=== PATIENT | male | born 1940 ===

== ENCOUNTER 2023-01-01 13:43 | Inpatient (IN) | payer MEDICARE ==
[2023-01-01] MEDS ORDERED: Mag-Al 1200 mg/1200 mg/30 ML UDCUP PO PRN (15:30)
[2023-01-01] MEDS ORDERED: Bisacodyl 5 MG TAB PO PRN (15:30)
[2023-01-01 16:15] LABS: #Basophils 0.1 thou/uL (0.0-0.2); #Eosinphils 0.1 thou/uL (0.0-0.7); #Lymphocytes 3.1 thou/uL (1.20-3.40); #Neutrophils 8.6 thou/uL (1.40-6.50); %Basophils 0.7 % (0.0-1.0); %Eosinophils 0.5 % (0.0-10.0); %Lymphocytes 24.4 % (21.0-51.0); %Monocytes 7.4 % (0.0-10.0); Hemoglobin 14.6 g/dL (14.0-18.0); Mean Corpuscular HGB CONC 31.8 g/dL (32.0-36.0); Mean Corpuscular Hemoglobin 31.8 pg (27.0-31.0); Mean Corpuscular Volume 99.9 fl (78.0-98.0); Mean Platelet Volume 8.3 fL (7.4-10.4); Platelet Count 197 10x3/uL (130-400); RBC Distribution Width 13.4 % (11.5-14.5); Red Blood Cell (RBC) Count 4.61 mill/uL (4.70-6.10); White Blood Cell (WBC) Count 12.8 10x3/uL (4.8-10.8)
[2023-01-01 16:37] LABS: ALT (SGPT) 25 U/L (8-55); AST (SGOT) 25 U/L (5-34); Albumin 3.9 g/dL (3.4-4.8); Alkaline Phosphatase 73 U/L (40-110); Anion Gap 13 mmol/L (10-20); BUN (Urea Nitrogen) 20 mg/dL (8.4-25.7); Bilirubin, Total 0.7 mg/dL (0.2-1.2); Calc. Creatinine Clearance 68 mL/min (70-130); Calcium 9.7 mg/dL (7.8-10.44); Carbon Dioxide 23 mmol/L (23-31); Chloride 105 mmol/L (98-107); Estimated GFR 69; Glucose 101 mg/dL (83-110); Potassium 4.4 mmol/L (3.5-5.1); Protein, Total 6.9 g/dL (5.8-8.1); Sodium 137 mmol/L (136-145)
[2023-01-01] MEDS: Apixaban 5 MG TAB PO SCH (20:38)
[2023-01-02] MEDS: Furosemide 40 MG/4 ML VIAL SLOW IVP SCH (08:35)
[2023-01-02] MEDS: Apixaban 5 MG TAB PO SCH ×2 (08:35→20:10)
[2023-01-02] MEDS ORDERED: Flecainide 50 MG TAB PO SCH (09:00)
[2023-01-02] MEDS ORDERED: Rivaroxaban 10 MG TAB PO SCH (09:00)
[2023-01-02] MEDS ORDERED: Amiodarone 150 MG in Dextrose 5% in Water 100 ML IVPB SCH (09:15)
[2023-01-02 10:45] LABS: Magnesium 1.9 mg/dL (1.6-2.6)
[2023-01-02 10:46] LABS: ALT (SGPT) 25 U/L (8-55); AST (SGOT) 22 U/L (5-34); Alkaline Phosphatase 75 U/L (40-110); Bilirubin, Direct 0.5 mg/dL (0.1-0.3)
[2023-01-02] MEDS: Amiodarone 450 MG in Dextrose 5% in Water 250 ML IVPB SCH ×2 (10:55→20:06)
[2023-01-02] MEDS ORDERED: Furosemide 40 MG/4 ML VIAL SLOW IVP SCH (14:00)
[2023-01-02] MEDS: Furosemide 20 MG/2 ML VIAL SLOW IVP SCH (14:45)
[2023-01-02] MEDS: Carvedilol 3.125 MG TAB PO SCH (17:02)
[2023-01-02] MEDS: Benzonatate 100 MG CAP PO PRN (18:07)
[2023-01-02] MEDS: Amiodarone 200 MG TAB PO SCH (20:10)
[2023-01-03] MEDS: Benzonatate 100 MG CAP PO PRN ×2 (01:26→17:15)
[2023-01-03] MEDS: Furosemide 20 MG/2 ML VIAL SLOW IVP SCH ×2 (06:17→18:02)
[2023-01-03] MEDS: Amiodarone 200 MG TAB PO SCH ×2 (10:33→20:17)
[2023-01-03] MEDS: Carvedilol 3.125 MG TAB PO SCH ×2 (10:33→17:07)
[2023-01-03] MEDS: Apixaban 5 MG TAB PO SCH ×2 (10:34→20:17)
[2023-01-03] MEDS: Amiodarone 450 MG in Dextrose 5% in Water 250 ML IVPB SCH (13:13)
[2023-01-03] MEDS ORDERED: Furosemide 40 MG/4 ML VIAL SLOW IVP SCH (16:30)
[2023-01-03] MEDS: Furosemide 40 MG/4 ML VIAL SLOW IVP SCH (18:02)
[2023-01-03] MEDS: Digoxin 0.5 MG/2 ML AMP SLOW IVP SCH ×2 (18:56→23:40)
[2023-01-04] MEDS: Digoxin 0.5 MG/2 ML AMP SLOW IVP SCH ×2 (05:39→13:11)
[2023-01-04] MEDS: Amiodarone 450 MG in Dextrose 5% in Water 250 ML IVPB SCH ×2 (05:45→23:10)
[2023-01-04] MEDS: Furosemide 40 MG/4 ML VIAL SLOW IVP SCH ×2 (05:45→14:55)
[2023-01-04] MEDS: Carvedilol 3.125 MG TAB PO SCH ×2 (09:19→18:30)
[2023-01-04] MEDS: Apixaban 5 MG TAB PO SCH ×2 (09:19→19:56)
[2023-01-04] MEDS: Amiodarone 200 MG TAB PO SCH ×2 (09:19→19:56)
[2023-01-04] MEDS: Benzonatate 100 MG CAP PO PRN (21:11)
[2023-01-05] MEDS: Furosemide 40 MG/4 ML VIAL SLOW IVP SCH ×2 (03:23→14:00)
[2023-01-05] MEDS: Benzonatate 100 MG CAP PO PRN ×3 (03:32→20:48)
[2023-01-05 05:22] LABS: Anion Gap 12 mmol/L (10-20); BUN (Urea Nitrogen) 13 mg/dL (8.4-25.7); Calc. Creatinine Clearance 75 mL/min (70-130); Calcium 9.3 mg/dL (7.8-10.44); Carbon Dioxide 31 mmol/L (23-31); Chloride 99 mmol/L (98-107); Estimated GFR 85; Glucose 108 mg/dL (83-110); Potassium 3.4 mmol/L (3.5-5.1); Sodium 139 mmol/L (136-145)
[2023-01-05] MEDS: Carvedilol 3.125 MG TAB PO SCH (08:11)
[2023-01-05 09:39] VITALS: BMI 28.6
[2023-01-05] MEDS ORDERED: KETAMINE 100 MG/ML (5ML VIAL) ONE (10:02)
[2023-01-05] MEDS ORDERED: PHENYLEPHRINE-NS 100 MCG/ML 10 ML SYRINGE ONE (10:35)
[2023-01-05] MEDS ORDERED: Norepinephrine 4 MG/4 ML VIAL ONE (10:36)
[2023-01-05] MEDS ORDERED: PROPOFOL 200 MG/20 ML VIAL ONE (10:54)
[2023-01-05] MEDS: Amiodarone 200 MG TAB PO SCH ×2 (12:09→20:49)
[2023-01-05] MEDS: Apixaban 5 MG TAB PO SCH ×2 (12:09→20:49)
[2023-01-05] MEDS ORDERED: cloNIDine 0.1 MG TAB PO PRN (13:15)
[2023-01-05] MEDS ORDERED: Spironolactone 25 MG TAB PO SCH (13:30)
[2023-01-05] MEDS ORDERED: Carvedilol 6.25 MG TAB PO SCH (13:45)
[2023-01-05] MEDS: Acetaminophen 325 MG TAB PO PRN (14:00)
[2023-01-05] MEDS: Carvedilol 6.25 MG TAB PO SCH (16:09)
[2023-01-05] MEDS: Sacubitril 24MG/Valsartan 26 MG TAB PO SCH (20:49)
[2023-01-06] MEDS: Furosemide 40 MG/4 ML VIAL SLOW IVP SCH ×2 (05:57→14:30)
[2023-01-06] MEDS: Benzonatate 100 MG CAP PO PRN (06:08)
[2023-01-06] MEDS ORDERED: Spironolactone 25 MG TAB PO SCH (08:00)
[2023-01-06] MEDS: Acetaminophen 325 MG TAB PO PRN (08:18)
[2023-01-06] MEDS: Amiodarone 200 MG TAB PO SCH (08:20)
[2023-01-06] MEDS: Apixaban 5 MG TAB PO SCH (08:21)
[2023-01-06] MEDS: Carvedilol 6.25 MG TAB PO SCH (08:21)
[2023-01-06] MEDS: Sacubitril 24MG/Valsartan 26 MG TAB PO SCH (08:21)
[2023-01-06 11:56] VITALS: BP 123/63; TEMP 98.1
== END 2023-01-06 15:15 | disposition home or self-care (01) | DRG 310 ==
LOC: 2SW 13:53
PROVIDERS: ADMIT Internal Medicine Cardiovascular Disease; ATTEND Internal Medicine Cardiovascular Disease
PROC: B246ZZ4 Ultrasonography of Right and Left Heart, Transesophageal (ICD-10-PCS; principal; 2023-01-05)
DX: I48.91 Unspecified atrial fibrillation (principal); I42.9 Cardiomyopathy, unspecified; I50.9 Heart failure, unspecified; I51.3 Intracardiac thrombosis, not elsewhere classified; I27.20 Pulmonary hypertension, unspecified
CPT/HCPCS: 36415; 71046; 80048; 80053; 80076; 83735; 83880; 84443; 85025; 92960; 93306; 93312; J0282; J1160; J1940; J2704; J3490; J7070